=== PATIENT | female | born 1945 | race Caucasian/White ===

== ENCOUNTER 2025-09-05 17:47 | Emergency (ER) | payer OTHER ==
[2025-09-05 17:57] VITALS: TEMP 97.8; BMI 20.5
[2025-09-05 19:14] LABS: ABSOLUTE IMMATURE GRANULOCYTES 0.33 x10^3/uL (0.0-0.031); BASOPHILS # 0.10 x10^3/uL (0.01-0.08); EOSINOPHIL % 1.0 % (0.7-5.8); EOSINOPHILS # 0.11 x10^3/uL (0.04-0.36); MCHC 32.5 g/dl (32.2-35.5); MEAN CELL VOLUME 95.4 fl (79.4-94.8); MEAN PLT VOLUME 10.5 fl (9.4-12.3); MONOCYTE # 1.15 x10^3/uL (0.24-0.86); MONOCYTE % 10.2 % (4.7-12.5); RDW 14.3 % (12.4-16.6)
[2025-09-05 19:30] LABS: GLUCOSE,RANDOM 118.0 mg/dL (74-106)
[2025-09-05 19:31] LABS: TOT PROT 6.4 g/dl (6.4-8.2)
[2025-09-05 19:32] LABS: CO2 25.0 mmol/L (21-32)
[2025-09-05 19:33] LABS: ALK PHOS 72.0 U/L (40-150)
[2025-09-05 19:36] LABS: CREATININE 0.97 mg/dL (0.55-1.3); SGOT/AST 20.0 U/L (5-34); SGPT/ALT 19.0 U/L (0-55)
[2025-09-05 21:20] VITALS: BP 134/52; PULSE 72; RESP 18
== END 2025-09-05 23:00 | disposition home or self-care (01) ==
LOC: JER 17:47
DX: S00.03XA Contusion of scalp, initial encounter (principal); M25.511 Pain in right shoulder; M25.551 Pain in right hip; W01.198A Fall on same level from slipping, tripping and stumbling with subsequent striking against other object, initial encounter; Y92.481 Parking lot as the place of occurrence of the external cause
CPT/HCPCS: 36415; 70450-TC; 71045-TC-FY; 72125-TC; 73030-TC-RT-FY; 73502-TC-RT-FY; 80053; 83735; 85025; 86850; 86900; 86901; 93005; 93010; 99285-25